=== PATIENT | male | born 1980 | race Caucasian/White ===

== ENCOUNTER 2020-02-23 20:45 | Emergency (ER) | payer MEDICAID ==
[~2020-02-23] VITALS: Ht 177.8 cm; Wt 85.3 kg
[2020-02-23 21:01] VITALS: Ht 177.8 cm; Wt 85.3 kg
[2020-02-23 23:22] LABS: microscopic required? YES; urine erythrocyte 3+ (NEGATIVE)
[2020-02-24 00:34] LABS: CALCIUM 9.7 mg/dL (8.5-10.1); CARBON DIOXIDE 30.7 mmol/L (21-32); CHLORIDE SERUM 101 mmol/L (98-107); GFR1 > 60 mL/min; GLUCOSE SERUM 76 mg/dL (74-106); POTASSIUM SERUM 4.2 mmol/L (3.5-5.1); SODIUM SERUM 137 mmol/L (136-145)
[2020-02-24 00:37] LABS: BASOPHIL % 1.9 % (0-2); PLATELET COUNT 371 x10^3mcL (130-400); RED CELL DISTRIBUTION WIDTH 11.7 % (11.5-14.5)
[2020-02-24 03:30] VITALS: BP 119/77
== END 2020-02-24 03:30 | disposition home or self-care (01) ==
LOC: ED 20:45
PROVIDERS: Emergency Medicine; Student in an Organized Health Care Education/Training Program
DX: N30.91 Cystitis, unspecified with hematuria (principal)
CPT/HCPCS: 87491; 87591; J0696; J7060; Q9967